=== PATIENT | female | born 1950 | race Caucasian/White ===

== ENCOUNTER 2018-10-15 07:20 | Day surgery (SDC) | payer MEDICARE, BC ==
[~2018-10-15] VITALS: Ht 170.2 cm; Wt 139.6 kg
[~2018-10-15 07:20] MED LIST: ATOR20TA PO; CLIN-26 PO; ESOM40CA PO; LEVO75TA PO; METF500T PO; METO100T7 PO; SERT50TA PO; TRIA1CAP6 PO; VALS160T2 PO
[2018-10-15] MEDS ORDERED: midazolam 2 mg/2 ml injection ONE (07:52)
[2018-10-15] MEDS ORDERED: fentaNYL/PF 50MCG/1 ML 2ML syringe ONE (07:52)
[2018-10-15] MEDS ORDERED: lidocaine 1%/epinephrine 1:100,000 injection 50ml vial ONE (07:52)
[2018-10-15] MEDS ORDERED: iohexol 350 MG/ML 50ML vial IV ONE (07:52)
[2018-10-15] MEDS ORDERED: cefazolin/dext.iso 2gm/100ml 100 ML IV ONE (07:55)
[2018-10-15] MEDS ORDERED: normal saline 1,000 ML IV SCH (08:05)
[2018-10-15] MEDS ORDERED: diphenhydrAMINE 25mg capsule PO PRN (08:05)
[2018-10-15 08:13] VITALS: BP 122/60
[2018-10-15] MEDS ORDERED: OLME20TA23 PO (08:21)
[2018-10-15] MEDS ORDERED: ERGO500056 PO (08:23)
[2018-10-15] MEDS ORDERED: ESOM40CA54 PO (08:23)
[2018-10-15 08:45] LABS: ALBUMIN 3.7 G/DL (3.4-5.0); ANION GAP 9 (8-16); BLOOD UREA NITROGEN 13 MG/DL (7-18); BUN/CREATININE RATIO 10.4 (6.6-38.0); CALCIUM 9.7 MG/DL (8.5-10.1); CHLORIDE 103 MMOL/L (99-107); CREATININE 1.25 MG/DL (0.40-0.90); GLUCOSE 116 MG/DL (70-104); MAGNESIUM 1.8 MG/DL (1.5-2.4); POTASSIUM 3.4 MMOL/L (3.5-5.1); SODIUM 139 MMOL/L (135-145); TOTAL CARBON DIOXIDE 26.7 MMOL/L (24-32); eGFR 42 ML/MIN
[2018-10-15 08:48] LABS: BASOPHILS # (AUTO) 0.1 X10'3 (0-0.2); BASOPHILS % (AUTO) 0.8 % (0-1); EOSINOPHILS # (AUTO) 0.2 X10'3 (0-0.9); EOSINOPHILS % (AUTO) 2.3 % (0-6); HEMATOCRIT 48.3 % (35.0-45.0); HEMOGLOBIN 16.8 g/dl (12.0-16.0); LYMPHOCYTES # (AUTO) 1.9 X10'3 (1.1-4.8); LYMPHOCYTES % (AUTO) 25.9 % (21-51); MEAN CORPUSCULAR HEMOGLOBIN 31.2 PG (27.0-31.0); MEAN CORPUSCULAR HGB CONC 34.7 g/dL (33.0-36.5); MEAN CORPUSCULAR VOLUME 89.8 FL (78-98); MEAN PLATELET VOLUME 8.4 FL (7.4-10.4); MONOCYTES # (AUTO) 0.5 X10'3 (0-0.9); MONOCYTES % (AUTO) 7.5 % (2-12); NEUTROPHILS # (AUTO) 4.6 X10'3 (1.8-7.7); NEUTROPHILS % (AUTO) 63.5 % (42-75); PLATELET COUNT 354 X10'3 (140-440); RED BLOOD COUNT 5.38 X10'6 (4.20-5.60); RED CELL DISTRIBUTION WIDTH 14.6 % (11.5-14.5); WHITE BLOOD COUNT 7.2 X10'3 (4.5-11.0)
== END 2018-10-15 09:15 | disposition home or self-care (01) ==
LOC: SSTAY O 07:20
PROVIDERS: ATTEND Internal Medicine Cardiovascular Disease
DX: E78.5 Hyperlipidemia, unspecified (principal); Z53.8 Procedure and treatment not carried out for other reasons; Z88.0 Allergy status to penicillin
CPT/HCPCS: 36415; 80048; 83735; 85025; 85610; 93005; J0690; J2250; J3010; J3490; J7030; Q0163; Q9967

== ENCOUNTER 2018-10-27 08:12 | Day surgery (SDC) | payer MEDICARE, BC ==
[~2018-10-27] VITALS: Ht 170.2 cm; Wt 139.8 kg
[2018-10-27] VITALS (8 sets, daily range): BP systolic 93–145; BP diastolic 45–84
[~2018-10-27 08:12] MED LIST changes: -CLIN-26 PO; +ERGO500056 PO; -ESOM40CA PO; +ESOM40CA54 PO; +OLME20TA23 PO; -SERT50TA PO; -VALS160T2 PO
[2018-10-27] MEDS ORDERED: normal saline 1,000 ML IV SCH (08:35)
[2018-10-27] MEDS ORDERED: diphenhydrAMINE 25mg capsule PO PRN (08:35)
[2018-10-27 09:19] LABS: BASOPHILS # (AUTO) 0.1 X10'3 (0-0.2); BASOPHILS % (AUTO) 0.9 % (0-1); EOSINOPHILS # (AUTO) 0.2 X10'3 (0-0.9); EOSINOPHILS % (AUTO) 2.7 % (0-6); HEMATOCRIT 49.7 % (35.0-45.0); HEMOGLOBIN 17.1 g/dl (12.0-16.0); LYMPHOCYTES # (AUTO) 2.2 X10'3 (1.1-4.8); LYMPHOCYTES % (AUTO) 29.4 % (21-51); MEAN CORPUSCULAR HEMOGLOBIN 31.1 PG (27.0-31.0); MEAN CORPUSCULAR HGB CONC 34.4 g/dL (33.0-36.5); MEAN CORPUSCULAR VOLUME 90.6 FL (78-98); MEAN PLATELET VOLUME 8.6 FL (7.4-10.4); MONOCYTES # (AUTO) 0.5 X10'3 (0-0.9); MONOCYTES % (AUTO) 6.3 % (2-12); NEUTROPHILS # (AUTO) 4.4 X10'3 (1.8-7.7); NEUTROPHILS % (AUTO) 60.7 % (42-75); PLATELET COUNT 329 X10'3 (140-440); RED BLOOD COUNT 5.48 X10'6 (4.20-5.60); RED CELL DISTRIBUTION WIDTH 14.5 % (11.5-14.5); WHITE BLOOD COUNT 7.3 X10'3 (4.5-11.0)
[2018-10-27] MEDS ORDERED: LIDOcaine 1% (10mg/ml) 2ml vial ONE (09:22)
[2018-10-27 09:28] LABS: ALBUMIN 3.8 G/DL (3.4-5.0); ANION GAP 12 (8-16); BLOOD UREA NITROGEN 12 MG/DL (7-18); BUN/CREATININE RATIO 10.4 (6.6-38.0); CALCIUM 9.8 MG/DL (8.5-10.1); CHLORIDE 102 MMOL/L (99-107); CREATININE 1.15 MG/DL (0.40-0.90); GLUCOSE 104 MG/DL (70-104); MAGNESIUM 1.8 MG/DL (1.5-2.4); POTASSIUM 3.7 MMOL/L (3.5-5.1); SODIUM 142 MMOL/L (135-145); TOTAL CARBON DIOXIDE 27.8 MMOL/L (24-32); eGFR 47 ML/MIN
[2018-10-27] MEDS ORDERED: lidocaine 1%/epinephrine 1:100,000 injection 50ml vial ONE (09:50)
[2018-10-27] MEDS ORDERED: fentaNYL/PF 50MCG/1 ML 2ML syringe ONE ×3 (09:50→11:07)
[2018-10-27] MEDS ORDERED: midazolam 2 mg/2 ml injection ONE ×3 (09:50→11:07)
[2018-10-27] MEDS ORDERED: iohexol 350 MG/ML 50ML vial IV ONE ×2 (09:50→11:18)
[2018-10-27] MEDS ORDERED: vancomycin 1,000mg inj ONE ×2 (10:30→10:57)
[2018-10-27] MEDS ORDERED: proCHLORperazine 10 MG/2 ml inj ONE (10:51)
== END 2018-10-27 15:36 | disposition home or self-care (01) ==
LOC: SSTAY O 08:12
PROVIDERS: ATTEND Internal Medicine Cardiovascular Disease
DX: I44.2 Atrioventricular block, complete (principal); E66.01 Morbid (severe) obesity due to excess calories; I42.7 Cardiomyopathy due to drug and external agent; Z90.49 Acquired absence of other specified parts of digestive tract; Z98.890 Other specified postprocedural states; Z88.0 Allergy status to penicillin; Z79.899 Other long term (current) drug therapy; Z95.0 Presence of cardiac pacemaker; Z68.42 Body mass index [BMI] 45.0-49.9, adult
CPT/HCPCS: 33225; 33229; 36415; 71046; 80048; 83735; 85025; 85610; 93005; 99152; 99153; C1887; C1900; C2621; J0780; J2250; J3010; J3370; J3490; J7030; Q0163; Q9967; 33215; 33221; 33224; 33228; 33264; A4565; A4620; C1769; C1894